=== PATIENT | female | born 1990 | race Asian ===

== ENCOUNTER 2022-08-16 07:48 | Inpatient (IN) | payer OTHER ==
[2022-08-16] VITALS (15 sets, daily range): BP systolic 94–139; BP diastolic 51–103
[~2022-08-16] VITALS: Ht 160 cm; Wt 73.9 kg
[2022-08-16] MEDS ORDERED: LACTATED RINGER'S 1000 ML IV STA (08:04)
[2022-08-16] MEDS ORDERED: METHYLERGONOVINE MALEATE 0.2MG/ML 1ML VIAL IM PRN (08:05)
[2022-08-16] MEDS ORDERED: TRANEXAMIC ACID INJection 1,000 MG in NS 100 ML IV PRN (08:05)
[2022-08-16] MEDS ORDERED: CARBOPROST TROMETHAMINE 250 MCG/ML AMP IM PRN (08:05)
[2022-08-16] MEDS ORDERED: LIDOCAINE 1% MDV 20ML VIAL INFIL PRN (08:05)
[2022-08-16] MEDS ORDERED: OXYTOCIN DRIP 30 UNITS in IV 1 EA IV PRN ×4 (08:05)
[2022-08-16] MEDS ORDERED: miSOPROStol 50MCG 1/2 TABLET PO PRN (08:05)
[2022-08-16] MEDS ORDERED: OXYTOCIN INJ 10UNITS/ML 1ML VIAL IM PRN (08:05)
[2022-08-16] MEDS ORDERED: FISH1CAP26 PO (08:23)
[2022-08-16] MEDS ORDERED: PNV1TABL16 PO (08:23)
[2022-08-16] MEDS ORDERED: IRON27TA2 PO (08:23)
[2022-08-16] MEDS ORDERED: CALC500C16 PO (08:23)
[2022-08-16] MEDS ORDERED: SYNT50TA PO (08:23)
[2022-08-16 10:21] LABS: HEMATOCRIT 44.3 % (36.0-47.0); HEMOGLOBIN 14.6 g/dl (12.0-15.5); MEAN CORPUSCULAR HEMOGLOBIN 30.9 pg (27.0-33.0); MEAN CORPUSCULAR VOLUME 93.9 fl (80.0-96.0); PLATELET COUNT, AUTOMATED 259 10^3/uL (150-450); RED BLOOD COUNT 4.72 10^6/uL (4.00-5.40); WHITE BLOOD COUNT 12.6 10^3/uL (4.0-10.0)
[2022-08-16] MEDS ORDERED: miSOPROStol 50MCG 1/2 TABLET SL PRN (13:20)
[2022-08-16] MEDS: miSOPROStol 25MCG 1/4 TABLET SL PRN (21:03)
[2022-08-17] VITALS (23 sets, daily range): BP systolic 91–123; BP diastolic 52–64
[2022-08-17] MEDS: miSOPROStol 25MCG 1/4 TABLET SL PRN ×3 (03:27→16:36)
[2022-08-17] MEDS: LEVOTHYROXINE 50MCG TABLET (0.05MG) PO SCH (08:00)
[2022-08-17] MEDS: BUTORPHANOL 2 MG/ML 1ML VIAL IV PRN ×2 (10:14→23:17)
[2022-08-17] MEDS: PROMETHAZINE 25MG/ML 1ML VIAL IV PRN ×2 (10:15→23:17)
[2022-08-17] MEDS: LR 1,000 ML IV SCH ×3 (10:20→23:37)
[2022-08-17] MEDS ORDERED: OXYTOCIN DRIP 30 UNITS in IV 1 EA IV SCH (21:20)
[2022-08-18] VITALS (44 sets, daily range): BP systolic 92–177; BP diastolic 51–111
[2022-08-18] MEDS ORDERED: ONDANSETRON 4MG 2ML VIAL IV PRN (01:05)
[2022-08-18] MEDS ORDERED: diphenhydrAMINE 50MG/ML VIAL IV PRN (01:05)
[2022-08-18] MEDS ORDERED: NALOXONE INJ 0.4MG/1ML VIAL IV PRN (01:05)
[2022-08-18] MEDS ORDERED: LR 500 ML IV PRN (01:05)
[2022-08-18] MEDS ORDERED: EPIDURAL/PCA KEYS XX PRN (01:05)
[2022-08-18] MEDS: FENTANYL/ROPIVACAINE/NACL BAG 100 ML EPIDURAL SCH ×2 (01:50→11:05)
[2022-08-18] MEDS: LR 1,000 ML IV SCH ×2 (02:26→06:29)
[2022-08-18] MEDS: ePHEDrine SULFATE 25 MG/5 ML(5MG/ML) SYRINGE IVP PRN ×3 (03:15→03:23)
[2022-08-18] MEDS: LEVOTHYROXINE 50MCG TABLET (0.05MG) PO SCH (06:17)
[2022-08-18] MEDS: PRENATAL VITAMINS CHEWABLE TABLET PO SCH (09:00)
[2022-08-18] MEDS ORDERED: cefoTEtan DISODIUM 2 GM in D5W MINI-BAG PLUS 50 ML IV ONE (10:40)
[2022-08-18] MEDS ORDERED: METHYLERGONOVINE MALEATE 0.2 MG TAB PO PRN (11:15)
[2022-08-18] MEDS ORDERED: IBUPROFEN 600MG TAB PO PRN (11:15)
[2022-08-18] MEDS ORDERED: DIBUCAINE 1% OINTMENT 30GM TOP PRN (11:15)
[2022-08-18] MEDS ORDERED: ACETAMINOPHEN TAB 650MG DOSE (2X325MG) PO PRN (11:15)
[2022-08-18] MEDS ORDERED: MOM 30ML SUSPENSION UDC PO PRN (11:15)
[2022-08-18] MEDS ORDERED: OXYTOCIN DRIP 30 UNITS in IV 1 EA IV SCH (11:15)
[2022-08-18] MEDS: IBUPROFEN 800 MG TAB PO PRN ×2 (13:26→22:17)
[2022-08-18] MEDS: ACETAMINOPHEN 500 MG TAB PO PRN (14:57)
[2022-08-18] MEDS: MIRALAX *UNIT DOSE* 17GM PACKET PO SCH (21:30)
[2022-08-18] MEDS: DOCUSATE SODIUM 100MG CAPSULE PO SCH (22:15)
[2022-08-18] MEDS: oxyCODONE 5MG TAB PO PRN (22:20)
[2022-08-19] MEDS: ACETAMINOPHEN 500 MG TAB PO PRN (00:10)
[2022-08-19] MEDS: oxyCODONE 5MG TAB PO PRN (03:37)
[2022-08-19 06:00] VITALS: BP 112/65
[2022-08-19] MEDS: LEVOTHYROXINE 50MCG TABLET (0.05MG) PO SCH (06:50)
[2022-08-19 07:27] LABS: HEMATOCRIT 31.9 % (36.0-47.0); HEMOGLOBIN 10.5 g/dl (12.0-15.5); MEAN CORPUSCULAR HEMOGLOBIN 31.2 pg (27.0-33.0); MEAN CORPUSCULAR HGB CONC 32.9 g/dl (32.0-36.5); MEAN CORPUSCULAR VOLUME 94.7 fl (80.0-96.0); PLATELET COUNT, AUTOMATED 208 10^3/uL (150-450); RED BLOOD COUNT 3.37 10^6/uL (4.00-5.40); WHITE BLOOD COUNT 19.7 10^3/uL (4.0-10.0)
[2022-08-19] MEDS: PRENATAL VITAMINS CHEWABLE TABLET PO SCH (08:02)
[2022-08-19] MEDS: DOCUSATE SODIUM 100MG CAPSULE PO SCH ×2 (08:02→22:00)
[2022-08-19] MEDS: MIRALAX *UNIT DOSE* 17GM PACKET PO SCH ×2 (08:02→21:00)
[2022-08-19] MEDS: IBUPROFEN 800 MG TAB PO PRN ×2 (13:51→22:00)
[2022-08-19 18:00] VITALS: BP 114/61
[2022-08-20 06:01] VITALS: BP 109/74
[2022-08-20] MEDS: LEVOTHYROXINE 50MCG TABLET (0.05MG) PO SCH (06:30)
[2022-08-20] MEDS: MIRALAX *UNIT DOSE* 17GM PACKET PO SCH (09:00)
[2022-08-20] MEDS: PRENATAL VITAMINS CHEWABLE TABLET PO SCH (09:00)
[2022-08-20] MEDS: DOCUSATE SODIUM 100MG CAPSULE PO SCH (09:00)
[2022-08-20 10:30] VITALS: BP 109/74
[2022-08-20] MEDS: ACETAMINOPHEN 500 MG TAB PO PRN (10:53)
== END 2022-08-20 14:53 | disposition home or self-care (01) | DRG 768 ==
LOC: M LDI 07:48 → M OBS 08-18 13:43
PROVIDERS: ADMIT Advanced Practice Midwife; ATTEND Advanced Practice Midwife
PROC: 3E0P7GC Introduction of Other Therapeutic Substance into Female Reproductive, Via Natural or Artificial Opening (ICD-10-PCS; 2022-08-16)
PROC: 0DQR0ZZ Repair Anal Sphincter, Open Approach (ICD-10-PCS; principal; 2022-08-18)
PROC: 10E0XZZ Delivery of Products of Conception, External Approach (ICD-10-PCS; 2022-08-18)
DX: O99.284 Endocrine, nutritional and metabolic diseases complicating childbirth (principal); Z37.0 Single live birth; O70.22 Third degree perineal laceration during delivery, IIIb; Z3A.39 39 weeks gestation of pregnancy; E03.9 Hypothyroidism, unspecified; O09.513 Supervision of elderly primigravida, third trimester; Z79.890 Hormone replacement therapy

== ENCOUNTER 2022-10-14 21:42 | Emergency (ER) | payer OTHER ==
[~2022-10-14] VITALS: Ht 160 cm; Wt 63.7 kg
[~2022-10-14 21:42] MED LIST: CALC500C16 PO; FISH1CAP26 PO; IRON27TA2 PO; PNV1TABL16 PO; SYNT50TA PO
[2022-10-15 01:04] VITALS: BP 125/72
== END 2022-10-15 02:48 | disposition left against medical advice (07) ==
LOC: M ED 21:42
DX: R21 Rash and other nonspecific skin eruption (principal); Z53.21 Procedure and treatment not carried out due to patient leaving prior to being seen by health care provider